=== PATIENT | female | born 1995 | race Caucasian/White ===

== ENCOUNTER 2024-06-09 15:57 | Emergency (ER) | payer MEDICAID, SELFPAY ==
[2024-06-09 16:26] VITALS: BP 134/80; PULSE 82; RESP 16; TEMP 36.3; O2SAT 97; BMI 21.5
--- NOTE | 2024-06-09 17:19 | CRLHL7_ITS ---
For Patients: As a result of the Century Cures Act, medical imaging exams and procedure reports are released immediately into your electronic medical record. You may view this report before your referring provider. If you have questions, please contact your health care provider. INDICATION: 5 week , cramping. LMP 04/30/2024. COMPARISON: None. TECHNIQUE: Real-time shrestha-scale imaging of the pelvis was performed. FINDINGS: Sonographic imaging demonstrates a single intrauterine gestational sac with possible tiny yolk sac. No pole identified. The mean sac diameter measures 1.3 cm which corresponds to a gestational age of 6 weeks 1 day. The placenta has not yet developed. No evidence of a perigestational hemorrhage. The right ovary measures 4.7 x 2.6 x 2.4 cm and the left ovary measures 3.2 x 1.6 x 1.3 cm. There is a 1.7 x 2.2 x 1.7 cm complex hypoechoic avascular lesion in the right ovary which likely represents a corpus luteum. No suspicious adnexal mass. No free fluid in the pelvic cul-de-sac. IMPRESSION: 1. Intrauterine gestational sac corresponding to an ultrasound gestational age of 6 weeks 1 day. The clinical gestational age by LMP is 5 weeks 5 days. 2. No pole identified. This could be due to early dates. Recommend follow-up ultrasound in 14 days or more to assess viability. 3. Complex corpus luteal cyst in the right ovary. Dictated by Benita Sparrow MD @ 06/09/2024 8:11:17 PM (Electronically Signed)
--- NOTE | 2024-06-09 18:16 | ED_ITS ---
HPI - General Adult General Chief complaint: Abdominal Pain Stated complaint: nurses suggested ultrasound Time Seen by Provider: 06/09/24 17:13 History of Present Illness HPI narrative: This 28-year-old female comes in reporting crampy abdominal pain that feels like menstrual cramping. This has been going on for about a week. She just returned from [place] and prior to going there she did take a test which was positive. She thinks that she might be about 5 weeks . She does not report any vaginal bleeding. Related Data Home Medications ?Medication ?Instructions ?Recorded ?Confirmed No Known Home Medications 06/09/24 06/09/24 Allergies Allergy/AdvReac Type Severity Reaction Status Date / Time No Known Drug Allergies Allergy Verified 06/09/24 16:31 Review of Systems Status of ROS: Reports: 10 or more systems reviewed and unremarkable except as noted in History and below Narrative: Constitutional: No fevers, no weight gain or loss. Eyes: No discharge. No vision changes. HENT: No congestion, no sore throat, no ear pain. Cardiovascular: No chest pain, no palpitations. Respiratory: No shortness of breath, no wheezes, no cough. Gastrointestinal: No vomiting, no diarrhea. Abdominal pain as described above. Genitourinary: No dysuria, no hematuria. Musculoskeletal: Normal range of motion. Skin: No rashes, no pruritis. Neurological: No dizziness, weakness, sensory change, speech change. Endo/Heme/Allergies: No bruising or bleeding. No polydipsia. Pysch: no suicidality, no anxiety, no insomnia. All other systems reviewed and are negative. Exam Narrative: Exam Narrative: Constitutional: Well-developed, well-nourished, no acute distress. HEENT: Normocephalic, atraumatic. Neck: Normal range of motion. Nontender. Supple. Heart: Regular. No murmurs. Normal rate. Intact distal pulses. Lungs: Clear to auscultation. No chest discomfort. No wheezes, rhonchi, or rales. Abdomen: Normal bowel sounds. Crampy pain in the lower abdomen typical of menses. No rebound tenderness. Genitalia: Deferred. Back: No midline tenderness. Normal range of motion. Extremities: Normal range of motion. No injury. Skin: Intact. No rash. Warm. No erythema or pallor. Neurologic: No altered sensation. No weakness. Alert and oriented. Psychiatric: No suicidality. No anxiety or depression. No insomnia. Nursing notes and vitals signs are reviewed. Const: Vital Signs, click to edit/add: Vital Signs - 24 hr 06/09/24 16:26 Temperature 97.4 F L Pulse Rate [Pulse Oximeter] 82 Respiratory Rate 16 Blood Pressure [Ri ght Upper Arm] 134/80 Pulse Oximetry 97 Oxygen Delivery Me thod Room Air Course Vital Signs Vital signs: Initial Vital Signs Temperature 97.4 F L 06/09/24 16:26 Temperature Source Temporal Artery Scan 06/09/24 16:26 Pulse Rate 82 06/09/24 16:26 Respiratory Rate 16 06/09/24 16:26 Blood Pressure 134/80 06/09/24 16:26 Blood Pressure Mean 98 06/09/24 16:26 Blood Pressure Position Sitting 06/09/24 16:26 Pulse Oximetry 97 06/09/24 16:26 Oxygen Delivery Method Room Air 06/09/24 16:26 Vital Signs Temperature 97.4 F L 06/09/24 16:26 Pulse Rate 82 06/09/24 16:26 Respiratory Rate 16 06/09/24 16:26 Blood Pressure 134/80 06/09/24 16:26 Pulse Oximetry 97 06/09/24 16:26 Oxygen Delivery Method Room Air 06/09/24 16:26 Temperature 97.4 F L 06/09/24 16:26 Pulse Rate 82 06/09/24 16:26 Respiratory Rate 16 06/09/24 16:26 Blood Pressure 134/80 06/09/24 16:26 Pulse Oximetry 97 06/09/24 16:26 Oxygen Delivery Method Room Air 06/09/24 16:26 Medical Decision Making MDM Narrative Medical decision making narrative: This patient called in to clinic and was instructed to come here for an ultrasound to rule out the possibility of an ectopic . Ultrasound is obtained and does show a gestational sac in the uterus measuring 6 weeks and 1 day gestation. There are no other abnormalities on exam. I relayed this information to the patient who plans to connect with her OBGYN physician tomorrow for appointment. Discharge Plan Discharge Clinical Impression: First trimester , Abdominal pain during Patient Disposition: Home, Self-Care Condition: Stable Additional Instructions: Follow-up with OBGYN clinic. Use Tylenol as needed and directed. Return if worsening. Prescriptions: No Action No Known Home Medications Stand Alone Forms: [employer] Info Instructions
== END 2024-06-09 18:57 | disposition home or self-care (01) ==
PROVIDERS: Emergency Provider Emergency Medicine Emergency Medical Services
DX: Z34.91 Encounter for supervision of normal pregnancy, unspecified, first trimester (principal); R10.9 Unspecified abdominal pain
CPT/HCPCS: 76830; 99283; 99284

== ENCOUNTER 2024-06-28 16:17 | Outpatient (CLI) | payer MEDICAID, SELFPAY ==
--- NOTE | 2024-06-28 16:30 | CRLHL7_ITS ---
For Patients: As a result of the Century Cures Act, medical imaging exams and procedure reports are released immediately into your electronic medical record. You may view this report before your referring provider. If you have questions, please contact your health care provider. INDICATION: Follow-up viability COMPARISON: 06/09/2024 TECHNIQUE: Real-time shrestha-scale imaging of the pelvis was performed. FINDINGS: Sonographic imaging demonstrates a single living intrauterine gestation. The embryo demonstrates a regular cardiac rate measuring 165 beats per minute. The embryo`s crown-rump length measurement of 2.0 cm corresponds to a gestational age of 8 weeks 4 days with a sonographic due date of 02/03/2025. There is a normal-appearing yolk sac. There are no gross abnormalities noted within the embryo at this early state of development. The gestational sac has a normal appearance. There is no evidence of a perigestational hemorrhage. The amount of fluid within the sac appears appropriate for gestational age. The cervix is closed. The myometrium appears normal. The ovaries are of normal size. Corpus luteal cyst right ovary. There are no suspicious fluid collections noted in the cul-de-sac. IMPRESSION: Normal first trimester OB ultrasound exam. Gestational age calculated at 8 weeks 4 days with a sonographic due date of 02/03/2025. Dictated by Easton Christianson MD @ 06/29/2024 10:05:49 AM (Electronically Signed)
== END 2024-06-28 16:18 | disposition home or self-care (01) ==
LOC: US 16:18
PROVIDERS: Visit Provider Advanced Practice Midwife
DX: Z34.91 Encounter for supervision of normal pregnancy, unspecified, first trimester (principal); Z3A.08 8 weeks gestation of pregnancy
CPT/HCPCS: 76817; 87491; 87591

== ENCOUNTER 2024-07-04 09:40 | Outpatient (CLI) | payer MEDICAID, SELFPAY | END 2024-07-04 09:41 | disposition home or self-care (01) | LOC: NFLDREF 07-05 13:19 | PROVIDERS: Visit Provider Advanced Practice Midwife | DX: Z34.91 Encounter for supervision of normal pregnancy, unspecified, first trimester (principal) | CPT/HCPCS: 82565; 82570; 84156; 84450; 84460; 84520; 84550; 86592; 86703; 86704; 86706; 86762; 86787; 86803; 86850; 86900; 86901; 87086; 87340 ==

== ENCOUNTER 2024-08-22 13:10 | Outpatient (CLI) | payer MEDICAID, SELFPAY | END 2024-08-22 13:11 | disposition home or self-care (01) | PROVIDERS: Visit Provider Advanced Practice Midwife | DX: Z34.92 Encounter for supervision of normal pregnancy, unspecified, second trimester (principal); Z3A.16 16 weeks gestation of pregnancy | CPT/HCPCS: 81511; 86706 ==

== ENCOUNTER 2024-09-19 10:03 | Outpatient (CLI) | payer MEDICAID, SELFPAY ==
--- NOTE | 2024-09-19 10:15 | CRLHL7_ITS ---
For Patients: As a result of the Century Cures Act, medical imaging exams and procedure reports are released immediately into your electronic medical record. You may view this report before your referring provider. If you have questions, please contact your health care provider. OB ULTRASOUND LMP: 04/30/2024. ABDULAZIZ by LMP: 02/04/2025. GA: 20 w, 2 d. INDICATION: survey. FINDINGS: position: Vertex. Cervix: Visualized. Technique: Transabdominal. Length of closed cervix: 4.2 cm. Placenta/cord: Anterior. Technique: Transabdominal. Placenta tip to internal OS: 5.7 cm. Umbilical Cord: 3-vessel cord. Placenta insertion: Central. Amniotic Fluid: 6.0 cm SDP (greater than/equal to: 2- less than 8 cm). SURVEY: Observed Structures Cerebellum: Yes. 2.05 cm; 20 w 6 d. Cisterna Magna: Yes. 7.5 mm. Nuchal Fold: Yes. 4.2 mm. Lateral Ventricle: Yes. 5.7 mm. CSP: Yes. Midline Falx: Yes. Choroid Plexus: Yes. Spine: Yes. Stomach: Yes. Abd Cord Insertion: Yes. Urinary Bladder: Yes. Kidneys: Yes. Diaphragm: Yes. Nose/lips: Yes. Orbital view: Yes. Profile: Yes. Upper Extremities: Yes. Lower Extremities: Yes. Hands: Yes. Feet: Yes. Four-Chamber Heart: Yes. LVOT: Yes. RVOT: Yes. 3VV: Yes. 3VTV: Yes. BPD: 4.7 cm. 20 w 2 d, 49%. HC: 17.5 cm. 20 w 0 d, 31%. AC: 15.3 cm. 20 w 3 d, 50%. FL: 3.3 cm. 20 w 2 d, 44%. FL/AC: 21.7%. HC/AC Ratio: 1.2. Heart rate: 157 beats per minute. age by this US: 20 w 3 d. ABDULAZIZ by this US: 02/03/2025. EFW: 349.8 g. Weight: 12 oz. Percentile by ABDULAZIZ: 50%. COMMENT: There is borderline pelviectasis measuring 4 mm on the left and 3 mm on the right. IMPRESSION: Single live intrauterine gestation. There are no gross anomalies identified. There is borderline pelviectasis with left renal pelvis measuring 4 mm and right renal pelvis measuring 3 mm. Lexy Henry M.D. Diagnostic/Breast Radiologist [email or web address] AYLAP/chin neely/Dictated by: Lexy Henry MD @ 09/20/2024 8:25:00 AM (Electronically Signed)
== END 2024-09-19 10:04 | disposition home or self-care (01) ==
LOC: US 10:03
PROVIDERS: Visit Provider Midwife
DX: Z34.92 Encounter for supervision of normal pregnancy, unspecified, second trimester (principal); Z3A.20 20 weeks gestation of pregnancy
CPT/HCPCS: 76805

== ENCOUNTER 2024-11-15 10:57 | Outpatient (CLI) | payer MEDICAID, SELFPAY | END 2024-11-15 10:58 | disposition home or self-care (01) | LOC: NFLDREF 10:58 | PROVIDERS: Visit Provider Obstetrics & Gynecology | DX: O26.892 Other specified pregnancy related conditions, second trimester (principal); Z67.41 Type O blood, Rh negative | CPT/HCPCS: 86592; 86850; J2791 ==

== ENCOUNTER 2024-11-29 10:37 | Outpatient (CLI) | payer MEDICAID, SELFPAY ==
--- NOTE | 2024-11-29 10:45 | CRLHL7_ITS ---
For Patients: As a result of the Century Cures Act, medical imaging exams and procedure reports are released immediately into your electronic medical record. You may view this report before your referring provider. If you have questions, please contact your health care provider. INDICATION: Follow-up kidneys TECHNIQUE: Follow-up ultrasound for the kidneys. COMPARISON: Ultrasound September 19, 2024 FINDINGS: Intrauterine gestation: Single. heart rate: Regular, 154 bpm. presentation: Cephalic. Placenta: Anterior Amniotic fluid: 6.4 cm deepest pocket. Biometry: Biparietal diameter: 7.8 cm, 31 weeks 2 day Head circumference: 28.8 cm, 31 weeks 5 day Abdominal circumference: 26.9 cm, 31 weeks 0 day Femur length: 5.9 cm, 30 weeks 40 EFW: 1670 gram gm, 55.6 %. Estimated gestational age: 31 weeks 1 day ABDULAZIZ: 01/30/2025 Right renal pelvis measures 0.7 cm and left renal pelvis measures 0.4 cm, which are within normal limits for the gestational age of 31 weeks. IMPRESSION: 1. Single viable intrauterine with estimated gestational age of 31 weeks 1 day. 2. No renal pyelectasis in the current ultrasound. Dictated by Jose Rowell MD @ 11/29/2024 2:01:23 PM (Electronically Signed)
== END 2024-11-29 10:38 | disposition home or self-care (01) ==
LOC: US 10:37
PROVIDERS: Visit Provider Obstetrics & Gynecology
DX: O35.EXX0 Maternal care for other (suspected) fetal abnormality and damage, fetal genitourinary anomalies, not applicable or unspecified (principal); Z3A.31 31 weeks gestation of pregnancy
CPT/HCPCS: 76816

== ENCOUNTER 2025-01-06 11:03 | Outpatient (CLI) | payer MEDICAID, SELFPAY ==
[2025-01-07 13:27] LABS: Strep B DNA Probe POSITIVE (Negative)
[2025-01-07 13:52] LABS: Strep B Susceptibility Needed? No
== END 2025-01-06 11:04 | disposition home or self-care (01) ==
PROVIDERS: Visit Provider Obstetrics & Gynecology
DX: Z34.93 Encounter for supervision of normal pregnancy, unspecified, third trimester (principal); Z3A.35 35 weeks gestation of pregnancy
CPT/HCPCS: 82565; 82570; 84156; 84450; 84460; 84520; 87081; 87653

== ENCOUNTER 2025-01-06 12:45 | Inpatient (IN) | payer MEDICAID, SELFPAY ==
[2025-01-06] VITALS (20 sets, daily range): BP systolic 117–157; BP diastolic 54–89; PULSE 60–93; RESP 14–18; TEMP 36.3–36.7; O2SAT 97–99; BMI 27.9
[2025-01-06] MEDS: LACTATED RINGERS 1000 ML 1,000 ML 125 ML IV ×3 (13:04→18:02)
[2025-01-06] MEDS: MAGNESIUM IV 4 GM/100 ML PIGGYBACK IVPB (13:13)
[2025-01-06] MEDS: MAGNESIUM Infusion 40 GM/1,000 ML IV.SOLN IVPB (13:50)
[2025-01-06] MEDS: CEFAZOLIN 2 GM INJ IVP (14:22)
--- NOTE | 2025-01-06 14:31 | W.ANESCHARGE ---
Anesthesia Charges Start Date/Time Anesthesia Start Date: 01/06/25 Anesthesia Start Time: 14:02 Stop Date/Time Anesthesia Stop Date: 01/06/25 Anesthesia Stop Time: 15:31 Summary Emergency: [facility] Coding CPT Codes CPT Codes: ANESTH CS DELIVERY - 51529 ([id number]) P3 - PATIENT W/SEVERE SYS DISEASE, QK - CHILD CARE CENTER ASSISTANT DIRECTOR 2-4 CNCRNT ANES PROC, QX - BLIND ESCORT SVC W/ MD MED DIRECTION Additional Codes: Summary - Emergency: [facility] ([id number])
[2025-01-06] MEDS: KETOROLAC 30 MG/ML inj IVP ×2 (15:13→20:56)
--- NOTE | 2025-01-06 15:45 | W.ANESCHARGE ---
Anesthesia Charges Start Date/Time Anesthesia Start Date: 01/06/25 Anesthesia Start Time: 14:02 Stop Date/Time Anesthesia Stop Date: 01/06/25 Anesthesia Stop Time: 15:31 Summary Emergency: [facility] Coding CPT Codes CPT Codes: ANESTH CS DELIVERY - 03159 ([id number]) P3 - PATIENT W/SEVERE SYS DISEASE, QK - SECONDARY SCHOOL REGISTRAR 2-4 CNCRNT ANES PROC, QX - MATERNITY NURSE SVC W/ MD MED DIRECTION Additional Codes: Summary - Emergency: [facility] ([id number])
--- NOTE | 2025-01-06 15:45 | W.PM.NB ---
Nerve Block Nerve Block Time Seen by Provider: 15:20 Date Seen: 01/06/25 Type of block requested by surgeon for post-operative analgesia: TAP Side: bilateral Time out performed: Yes Verification of patient name: Yes Verification of date of : Yes Site marking: site marked Name of person performing procedure: Jed Hassan Continuous monitoring Was continuous monitoring of O2 sat, B/P, surveillance monitor, recorded every 15 minutes?: Yes Procedure Checklist: sterile prep, needles and gloves Ultrasound guided. Images saved: Yes Medications given in 5ml increments after negative aspiration: Marcaine %: 0.25 mL: 30 Needle gauge: 20 and Exparel mL: 10 Needle gauge: 20 Patient tolerated procedure well: Yes Additional comments: Injected in 5 mL increments after negative aspiration Block Charges Block Charge (with Pro Fee): TAP Bilateral Use of Ultrasound Machine for Block: Yes- US Guidance/pain block
--- NOTE | 2025-01-06 16:21 | W.PM.LDBA ---
Subjective History of Present Illness Narrative: Patient is being admitted to Labor and Delivery for pre-eclampsia with severe features. She is a 29 year old at 35.6 weeks gestation. Her full history and physical was dictated by Dr. Vasquez who saw her in clinic today and sent her over monitoring and possible delivery. Please see this for details. Patient had mild ranging blood pressures in clinic x 2 (134/100 and 134/92) and pre-e labs were significant for AST twice the upper limit of normal. Discussed with patient that she meets criteria for preeclampsia with severe features based on mild range in blood pressures and AST twice the upper limit of normal. She was started on magnesium sulfate for seizure prophylaxis and delivery was recommended. She was immediately NPO at the time of presentation to triage that she had not eaten anything since breakfast. Patient is nervous about the abrupt recommendation for delivery. However, she understands the reasoning. Reports that her 1st was a delivery at 36 weeks due to HELLP. Reports that her platelets were so low and blood pressures were so high that they could not do neuraxial anesthesia and she had to undergo delivery with general anesthesia. This was a very traumatic experience for her and would like to do everything possible to avoid this. Reassured patient that while her platelets are low at 138K, it is high enough for neuraxial anesthesia. This will be her 3rd delivery. The patient was consented for section and blood. She understands that the four main categories of risk include pain, bleeding, infection, and damage to surrounding structures. Intraoperative pain will be manage with spinal anesthesia or epidural anesthesia. If that those are not effective or not appropriate for the clinical situation, general anesthesia will be administered. Immediately postop, TAP block will be performed. Throughout her recovery course, she will have on PO pain medications such as ibuprofen, Tylenol, and oxycodone. Regarding infection, she understands that we will be delivering appropriate antibiotics, however that the risk of infection following section still is approximately 5%. She understands that though the risk is very low that there is always a risk of damage to the bladder, uterus, ovaries, fallopian tubes, bowels, ureters, or even the fetus. She understands that most injuries can be addressed at the time of surgery, however, such an injury may require additional surgeries to fix. She understands that a section carries a risk of bleeding, and that while this bleeding can be addressed with multiple medical and surgical modalities (including hysterectomy), that there is the possibility of needing a blood transfusion. She reports she would accept a blood transfusion understanding the risks of a 1/200,000 risk of Hepatitis and 1/2,000,000 risk of HIV as well as the risk of having an allergic reaction to the blood products. She further understands that this reaction is typically mild, however can be severe including respiratory distress and necessitating ICU-level care. Lastly, she understands that a section does increase risks for future pregnancies and deliveries including, but not limited to, the risk of uterine rupture or placenta accreta. We also reviewed postoperative care, recovery, and restrictions. All questions answered to the best of my abilities. Consent signed. Specific Issues/Plans FOB: Clifford- Not a healthy relationship Hep B: indeterminate, redrawn at 16.2 wks. Girl! # Hx of c/s x2, plans repeat LTCS First for deteriorating maternal medical status in the setting of HELLP syndrome at 36 weeks' gestation. Double layer uterine closure. Low transverse Second repeat at 38 weeks following [facility] Surgical request for repeat LTCS without tubal sterilization submitted for 01/23/2025 at 38 2/[address] Vasquez. Patient would like an abdominal binder following surgery. # Tobacco use, smokes cigarettes stopped 1 week before NOB appointment Declines assistance in cessation # Unplanned , accepting of it Desires genetic screening as this may change her plans of # Plan B taken at time of conception # Hx of HELLP without elevated BP in 1st Baseline pre-e labs: WNL Recommended baby ASA # Depression with Insomnia Stable, not on medication # O negative blood type -Recommend Rhogam at 28 weeks, FOB is + # Anxiety and Depression-see therapist, magnesium supplement encouraged # Headaches in early , declines rx at this time # Borderline pelviectasis on 20 wk US plan f/u US in 3rd trimester: Normal (Right 5mm, Left 4mm) COVID: declined Flu: declined Rhogam: given 11/15/2024 TDAP:11/29/24 RSV: 12/16/2024 8 OB - Problem Based A/P Additional Plan (1) Severe preeclampsia: Status: Acute Plan: Pre-Eclampsia with severe features ? Based on mild range in blood pressures and AST is 71 ? BPs 120 to 130s/70s-100s ? Symptoms: Asymptomatic ? Magnesium: on Magnesium for seizure ppx ? IV antihypertensives: currently not indicated ? Pre-eclampsia labs on 01/06/2025: Hgb 14.6 Plt 138 Cr 0.6 ALT 37 AST 71 P/C ratio 0.13 (2) Rh negative status during : Status: Acute Plan: - Will obtain core blood (3) History of 2 sections: Problem details: 2015 & 09/16/21 Status: Acute (4) History of HELLP syndrome, currently : Status: Acute (5) Depression: Status: Chronic Delivery/Labor/Induction Plan Plan: Section (Consented for repeat delivery) OB Exam Physical Exam Vital signs: Temp Pulse Resp BP Pulse Ox O2 Del Method 97.7 F 65 18 129/54 L 97 Room Air 01/06/25 16:15 01/06/25 16:15 01/06/25 16:15 01/06/25 16:15 01/06/25 16:15 01/06/25 15:30 Narrative: Physical exam: General: Nervous Psych: Alert and oriented x3, full affect HEENT: Normocephalic, atraumatic Lungs: Unlabored breathing Abdomen: Gravid, cephalic, soft, nontender, nondistended, no rebound or guarding INCISION: Previous Pfannenstiel incision well-healed Neuro: No focal deficit. Mentating appropriately Pelvic exam: Deferred
--- NOTE | 2025-01-06 16:53 | PM.OBPRCCS ---
Procedure Time Seen by Provider: 16:53 Date of procedure: 01/06/25 Procedure Done: Global Will [facility] bill your pro fee for this procedure?: Yes Procedure Description: DELIVERY BY SECTION Date of Service: 01/06/2025 Delivery time: 1436 Summary: Admitted for repeat delivery at 35.6 weeks, repeat lower uterine transverse section, Pfannenstiel, Closed with sutures, QBL 220 cc, no complications, Findings: Normal uterus, bilateral ovaries and tubes. Filmy intra-abdominal adhesions, moderate adhesions of the bladder to the previous hysterotomy scar 7/8 weight 5lb 11.63 oz Primary Indication: 1. Pre-eclampsia with severe features at 35.6 weeks 2. History of previous delivery x 2 Procedures: Repeat Lower uterine transverse section Specimens Removed: Placenta Surgeon: Shira Marin MD Anesthesia: Spinal, TAP Report: Prophylactic antibiotic, 2 g of Ancef was given before patient was taken to OR. After arrival to the operating room patient was placed in the supine position with left lateral tilt after administration of spinal anesthesia. Laparotomy A pfannenstiel incision was made through the anterior abdominal wall with #10 scalpel approximately 2 cm above the pubic symphysis. The incision was extended sharply with the #10 scalpel through the subcutaneous tissue to the level of fascia. The fascia was entered sharply with a #10 scalpel (Pfannenstiel) in the midline and extended in semi-elliptical fashion with Rowe scissor. The underlying muscles were dissected off the overlying fascia by grasping the superior aspect of fascia with two paulo clamps and blunt dissection was used along the midline. The fascia was further from rectus muscle with Rowe scissor and/or cautery. In similar fashion, the lower aspect of fascia was also grasped with two Paulo clamps and both blunt and sharp dissection was used to separate fascia from rectus muscle. The rectus muscles were in the midline bluntly with digits. The peritoneum was then entered bluntly. The peritoneal incision was then extended superiorly and inferiorly under direct visualization with care being taken to avoid bladder and bowel. Filmy intraabdominal adhesions. Taken down with electrocautery. The peritoneal incision was enlarged bluntly by lateral traction from the surgeon's and sales operations assistant's hand. Keyon retractor was inserted into the abdomen. Delivery A bladder flap was developed by grasping with Stateless forcep and enter with Metzenbaun scissor. Then sharp and blunt dissection with Metzenbaum scissor and fingers were performed. A low transverse hysterotomy was made then with #10 scalpel and extended laterally and cephalad with fingers in a low transverse fashion with Manu Mckeon technique with care being taken to avoid injury to the fetus. The amniotic cavity (membrane) was then entered with spontaneous rupture of membrane, and the amniotic fluid was noted to be clear, fetus was delivered cephalic. With delivery of the baby, no extension was noted. Placenta was delivered spontaneously with steady traction on cord and manual separation of placenta from uterine wall. Closure Uterine cavity was cleaned after placental delivery with lap sponge x 2. The hysterotomy was closed in two layers with stitches using 0 vicryl with continuous locking stitches and 0 monocryl in a continuous non locking manner. One [id number] placed at the right uterine angle. Hemostasis was achieved as needed with electrocautery. The ovaries/tubes/uterine surface were evaluated. They were found to be normal. Keyon retractor removed and hemostasis was confirmed again. Fascia was closed with running stitches using 0 PDS. Subcutaneous layer was irrigated. Hemostasis was checked for and found to be adequate. The subcutaneous layer was not indicated as her subcutaneous tissue was less than 2 cm. The skin was closed with 4-0 monocryl subcuticular sutures. The incision was cleaned, Exofin applied, and Mepilex placed. The procedure was considered terminate at this time. Intraoperative Complications: None QBL: 220 cc Hemostatic agents: 1 g of TXA Disposition: The patient tolerated the procedure well. She was recovered in obstetrical PACU for close monitoring in stable condition, with a contracted uterus and normal transvaginal bleeding. The was delivered to team for initial evaluation and resuscitation. The placenta was sent to pathology. Debrief with OR team performed and specimen reviewed at the conclusion of the procedure. [place] total score - 1 minute: 7 total score - 5 minute: 8
[2025-01-06] MEDS: ACETAMINOPHEN 500 MG TABLET 1000 MG PO ×2 (17:03→23:59)
[2025-01-06] MEDS: OXYCODONE 5 MG TABLET PO ×2 (18:10→22:13)
[2025-01-07] VITALS (10 sets, daily range): BP systolic 116–138; BP diastolic 70–90; PULSE 59–76; RESP 16–18; TEMP 36.3–36.6; O2SAT 98–99
[2025-01-07] MEDS: OXYCODONE 5 MG TABLET PO ×5 (02:45→22:35)
[2025-01-07] MEDS: KETOROLAC 30 MG/ML inj IVP ×4 (02:46→21:36)
[2025-01-07 06:23] LABS: Hematocrit 38.2 % (33.0-51.0); Hemoglobin* 13.1 gm/dL (12.0-16.0); Mean Corpuscular HGB Conc 34 gm/dL (32-36); Mean Corpuscular Hemoglobin 31 pg (26-34); Mean Corpuscular Volume 91 fL (80-100); Platelet Count* 119 K/uL (140-440); Red Blood Count 4.19 m/uL (4.00-5.20); White Blood Count* 9.66 K/uL (4.50-11.00)
[2025-01-07 06:33] LABS: Aspartate Amino Transferase* 49 U/L (12-35); Blood Urea Nitrogen* 9 mg/dL (5-24); Creatinine* 0.6 mg/dL (0.5-1.5); Est. Creatinine Clearance* 118.39; Estimated Glomerular Filt Rate 124 ml/min
[2025-01-07 06:34] LABS: Alanine Aminotransferase* 25 U/L (4-35)
[2025-01-07] MEDS: ACETAMINOPHEN 500 MG TABLET 1000 MG PO ×3 (06:36→19:01)
[2025-01-07 06:45] LABS: Slide Review Acceptable Review (Acceptable); Slide Review Reflex Yes
[2025-01-07] MEDS: LACTATED RINGERS 1000 ML 1,000 ML 75 ML IV (06:50)
[2025-01-07] MEDS: DOCUSATE SODIUM 100 MG CAPSULE PO (07:57)
[2025-01-07] MEDS: MAGNESIUM Infusion 40 GM/1,000 ML IV.SOLN IVPB (07:57)
--- NOTE | 2025-01-07 09:44 | PM.OBPNVD1 ---
OB - PN:Subj Subjective Time Seen by Provider: 09:44 Date Seen: 01/07/25 Patient comments OB post-: tolerating diet and flatus present [place] infant status: transferred [place] feeding status: expressed and bottle feeding Narrative: HPI: Manuel is a 29yo who is POD#1 from a [facility] on 01/06/2025 at 35w6d for severe preeclampsia by BP and transaminitis. Delivered at 14:36 so will have her Magnesium discontinued at 14:36 today. She has not required antihypertensive medication since delivery. She had a baby girl who was transferred to [facility]. Pain was not controlled overnight she states that she had significant cramping. She states this morning and have been better but she has been having to take 2 oxycodone every 4 hours along with Toradol and Tylenol. No problems with nausea or vomiting. She is planning on pumping and hopefully once she is discharged. Minimal edema. Is passing flatus. She is tolerating a regular diet. OB - PN: Obj Exam Physical Exam: Vital signs: Temp Pulse Resp BP Pulse Ox O2 Del Method 97.4 F L 62 18 128/82 98 Room Air 01/07/25 06:53 01/07/25 07:52 01/07/25 07:52 01/07/25 07:52 01/07/25 07:52 01/07/25 07:52 Narrative: General: Pleasant, , well groomed woman in no acute distress. Vital signs: Included in her electronic medical record. Heart: Regular rate and rhythm without gallop, rub or murmur. Chest: Clear to auscultation bilaterally. Abdomen: Soft, nontender and nondistended with normal bowel sounds throughout. Fundus is firm and 2 cm below the umbilicus in the midline. No CVA or flank tenderness. Incision: Dressing removed and incision is clean, dry and intact with sutures and skin adhesive gel. Extremities: Trace bilateral lower extremity edema to the ankle. No pain. OB - PN: Obj Data Labs Labs: Laboratory Results - last 24 hr 01/06/25 01/07/25 13:03 06:15 WBC 9.66 RBC 4.19 Hgb 13.1 Hct 38.2 MCV 91 MCH 31 MCHC 34 Plt Count 119 L Diff Slide Review Acceptable Review BUN 9 Creatinine 0.6 Estimated Creat Clear 118.39 Estimated GFR 124 AST 49 H ALT 25 Blood Type O Negative Antibody Screen POSITIVE Screen Negative OB - PN: A/P Delivery Assessment and Plan (1) Severe preeclampsia: Start date: 01/06/25 Start time: 14:00 Status: Acute (2) Rh negative status during : Status: Acute (3) History of 2 sections: Problem details: 2015 & 09/16/21 Status: Acute (4) History of HELLP syndrome, currently : Status: Acute (5) Depression: Status: Chronic Plan 1. Continue magnesium sulfate until 14:36 today. 2. Start Nifedipine ER 30mg daily if BP >/= 140/90 3. Pumping and planning on storing the clostrum to bring to the NICU at [facility] for her baby. 4. Possible D/C tomorrow.
[2025-01-08 03:20] VITALS: BP 122/75; PULSE 65; RESP 18; TEMP 36.8
[2025-01-08] MEDS: ACETAMINOPHEN 500 MG TABLET 1000 MG PO (03:22)
[2025-01-08 05:15] LABS: Hematocrit 35.8 % (33.0-51.0); Hemoglobin* 11.9 gm/dL (12.0-16.0); Mean Corpuscular HGB Conc 33 gm/dL (32-36); Mean Corpuscular Hemoglobin 31 pg (26-34); Mean Corpuscular Volume 92 fL (80-100); Platelet Count* 118 K/uL (140-440); Red Blood Count 3.88 m/uL (4.00-5.20); White Blood Count* 7.53 K/uL (4.50-11.00)
[2025-01-08 05:16] LABS: Slide Review Reflex No
[2025-01-08 05:38] LABS: Alanine Aminotransferase* 22 U/L (4-35); Aspartate Amino Transferase* 36 U/L (12-35); Blood Urea Nitrogen* 9 mg/dL (5-24); Creatinine* 0.7 mg/dL (0.5-1.5); Est. Creatinine Clearance* 101.48; Estimated Glomerular Filt Rate 119 ml/min
[2025-01-08 06:19] VITALS: BP 110/77; PULSE 77; RESP 18; TEMP 37.1
[2025-01-08] MEDS: IBUPROFEN 600 MG TABLET PO ×2 (06:23→12:28)
[2025-01-08 08:00] VITALS: BP 107/70; PULSE 64; RESP 18; TEMP 36.9; O2SAT 97
[2025-01-08] MEDS: OXYCODONE 5 MG TABLET PO (08:04)
[2025-01-08] MEDS: DOCUSATE SODIUM 100 MG CAPSULE PO (08:05)
--- NOTE | 2025-01-08 08:08 | P.DS_ITS ---
DS: Providers Provider Time Seen by Provider: 08:15 Date Seen: 01/08/25 Date of admission: 01/06/25 12:45 Primary care physician: Not a Local Provider Admitting Clinician: Shira Marin MD Attending Physician on discharge: Maye Pena MD DS: Diagnosis Discharge Diagnosis (1) Status post repeat low transverse section: Status: Acute Problem details: 35w6d, baby tx'd to [place] (2) Severe preeclampsia: Status: Acute Exam Narrative: Exam Narrative: General: Pleasant, , well groomed woman in no acute distress. Signs: Included in her electronic medical record. Heart: Regular rate and rhythm without gallop, rub or murmur. Chest: Clear to auscultation bilaterally. Abdomen: Soft, nontender and nondistended with normal bowel sounds throughout. This is firm 2 cm below the umbilicus in the midline. Incision: Clean, dry intact with sutures and skin adhesive gel. Extremities: No pain or edema. Const: Vital Signs, click to edit/add: Vital Signs - 24 hr 01/07/25 09:55 01/07/25 12:11 01/07/25 14:30 Temperature 97.5 F L 97.4 F L 97.4 F L Pulse Rate [Pulse Oximeter] 68 62 60 Respiratory Rate 18 18 18 Blood Pressure [Ri ght Arm] 116/75 129/90 H 116/72 Pulse Oximetry 98 98 98 Oxygen Delivery Me thod Room Air Room Air Room Air 01/07/25 19:03 01/07/25 22:41 01/08/25 03:20 Temperature 97.8 F 98.2 F Pulse Rate [Pulse Oximeter] 61 76 65 Respiratory Rate 16 18 18 Blood Pressure [Ri ght Arm] 125/84 125/72 122/75 Pulse Oximetry 99 Oxygen Delivery Me thod Room Air Room Air 01/08/25 06:19 Temperature 98.7 F Pulse Rate [Pulse Oximeter] 77 Respiratory Rate 18 Blood Pressure [Ri ght Arm] 110/77 Pulse Oximetry Oxygen Delivery Me thod Room Air OB - DS: Summary Hospital Course Hospital Course: The patient is a 29 year old G 3 P 12/10/2003 at 35 and 6/7 weeks gestation that was admitted to the Center on 01/06/25 for repeat low-transverse for severe preeclampsia. She had an uncomplicated delivery. She delivered a viable female infant who was transferred to [facility] due to respiratory issues. She is pumping and hoping to breastfeed. the patient has done well. She will be off of magnesium for 24 hours at 2:30 a.m. this afternoon. Like to be discharged at that time. Blood pressure has been under 140/90 since delivery except for 1 blood pressure that was 129/90 yesterday afternoon. She denies headaches, visual disturbance, right upper quadrant pain and swelling. She has a small amount of vaginal bleeding. Her preeclampsia labs this morning showed improving AST which was down to 36 and platelets were stable at 118 K, yesterday her platelets were 119K. Time spent discussing smoking cessation with patient: 3 to 10 minutes Peripartum Data delivery method: Repeat Section Procedures: Procedures Operation Date: 01/06/25 13:45 Actual Procedure Side Surgeon p Section Shira Marin MD [place] Infant Gender: Female Status at Discharge Functional status at discharge: independent ambulation Overall status at discharge: patient is progressing back to baseline Time Spent with Patient Time attestation: Total time spent providing and/or coordinating discharge services: Time spent: Less than 30 minutes Discharge Plan Discharge Disposition: Home, Self-Care Date of Admission: 01/06/25 12:45 Attending Provider on Discharge: Maye Pena Primary Care Provider: Provider,Not a Local Condition: Improved Anticipated Discharge Date/Time: 01/08/25 15:00 Discharge Medications: New docusate sodium 100 mg Capsule 100 mg PO BID PRN (Reason: constipation) Qty: 100 0RF ibuprofen 600 mg Tablet 600 mg PO Q6H PRN (Reason: Pain) Qty: 30 0RF oxycodone 5 mg Tablet 5 mg PO 3XD PRN (Reason: Pain) Qty: 21 0RF Continued One-A-Day -1 27 mg iron- 800 mcg-235 mg capsule PO Discontinued aspirin 81 mg tablet,delayed release (DR/EC) 81 mg PO QDAY magnesium 250 mg tablet 250 mg PO QDAY ondansetron 4 mg tablet,disintegrating 4 mg PO Q6H PRN (Reason: nausea and vomiting) Qty: 30 1RF Discharge Orders: Discharge Order (Routine); Ordered 01/08/25 Ordered By: Maye Pena Patient Education: Preeclampsia and Eclampsia After Delivery (GEN), (DC) Additional Instructions: ACTIVITY RESTRICTIONS: * Nothing vaginally for 6 weeks: no tampons/intercourse * No driving while taking narcotic pain medication during the day. 1-2 weeks. Okay to be the passenger anytime. * Lifting restriction: Maximum of 20 pounds for 6 weeks. * High impact or core exercises: 6 weeks. * Submerge the incision in water (bath/pool/eid): 2 weeks. * Off of work/school for a minimum of 8 weeks NO RESTRICTIONS for: * Walking * Going up/down stairs * Showering Symptoms to report to doctor: -Bleeding that saturates more than one pad per hour ?-Passing clots larger than the size of a golf ball ?-Pain not relieved by prescribed medication ?-Fever above 100.4 degrees Fahrenheit ?-A foul vaginal odor ?-Difficulty in emotions, mood and functions ?-Thoughts of hurting yourself and/or ?-Painful, reddened area in your breast ?-Any drainage, redness or tenderness in your IV/epidural site ?-Severe headache that doesn't improve after taking medications ?-Changes in vision, including temporary loss of vision, blurred vision, and/or light sensitivity ?-Upper abdominal pain (usually under ribs on the right side) ?-Decrease in urination or painful, frequent urinating ?-Chest pain ?-Shortness of breath ?-Tenderness or pain with redness and/swelling in the calf(s) of your leg Check BP daily at home, contact the clinic at [phone] if your BP is >/= 160/110 or if </= 90/60. Follow-up: 1. For a BP check on Thursday01/11/25 in the [facility] clinic. 2. [facility] Clinic in 2 weeks: incision and BP check, discuss contraceptive options, screen for anxiety and depression. 3. A 6 week visit for an annual physical exam. consultation services are available to all mothers and babies for the first year after delivery.? To make an appointment, please call [phone]. Activity Level: Other Follow Up Appointments: [facility] [Outside] Provider,Not a Local [Primary Care Provider] - Forms: [employer] Info Instructions
[2025-01-08 12:00] VITALS: BP 119/78; PULSE 78; RESP 18; TEMP 36.5; O2SAT 99
== END 2025-01-08 13:00 | disposition home or self-care (01) | DRG 788 ==
LOC: OB OUT 12:47 → OB 12:47
PROVIDERS: Obstetrics & Gynecology; Admitting Provider Obstetrics & Gynecology; Visit Provider Obstetrics & Gynecology
PROC: 10D00Z1 Extraction of Products of Conception, Low, Open Approach (ICD-10-PCS; CPT 59514; principal; 2025-01-06 13:30)
DX: O14.14 Severe pre-eclampsia complicating childbirth (principal); Z3A.35 35 weeks gestation of pregnancy; Z37.0 Single live birth; O99.892 Other specified diseases and conditions complicating childbirth; N73.6 Female pelvic peritoneal adhesions (postinfective); O26.893 Other specified pregnancy related conditions, third trimester; Z67.41 Type O blood, Rh negative; Z87.59 Personal history of other complications of pregnancy, childbirth and the puerperium; Z98.891 History of uterine scar from previous surgery; O99.344 Other mental disorders complicating childbirth; F41.9 Anxiety disorder, unspecified; F32.A Depression, unspecified; Z87.891 Personal history of nicotine dependence; G89.18 Other acute postprocedural pain; F51.04 Psychophysiologic insomnia
CPT/HCPCS: 01961; 36415; 64488; 76942; 82565; 84450; 84460; 84520; 85027; 85461; 86850; 86870; 86880; 86900; 86901; 88307; 99140; G0463; A4314; A9270; J0665; J0666; J0690; J1100; J1885; J2371; J2405; J2590; J2791; J3475; J7120

== ENCOUNTER 2025-08-04 14:17 | Outpatient (CLI) | payer MEDICAID, SELFPAY ==
[2025-08-04 18:00] LABS: Bacterial Vaginosis* POSITIVE (Negative); Candida glab/krus NOT DETECTED (No Detected)
[2025-08-04 18:30] LABS: Chlamydia DNA Amplified* NOT DETECTED (No Detected); GC DNA Amplified* NOT DETECTED (No Detected)
== END 2025-08-04 14:18 | disposition home or self-care (01) ==
PROVIDERS: Visit Provider Registered Nurse
DX: N89.8 Other specified noninflammatory disorders of vagina (principal)
CPT/HCPCS: 81513; 84443; 87481; 87491; 87591; 87661